=== PATIENT | male | born 1980 | race African-American/Black ===

== ENCOUNTER 2019-09-02 09:58 | Emergency (ER) | payer SELFPAY ==
[2019-09-02 10:09] VITALS: BP 148/92; PULSE 88; TEMP 97.9; BMI 38.7
[2019-09-02] MEDS ORDERED: IBUPROFEN 600 MG TABLET (FP) PO ONE ×2 (10:51→11:20)
--- NOTE | 2019-09-02 10:58 | PDOC ---
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 Reports he had a haircut and facial hair trimming approximately 5 days ago. Denies fever, chills, dental pain or any other complaints. Tetanus vaccine is up-to-date. ROS: As above PE: GENERAL: well-appearing, NAD HEAD: NCAT EYES: Pupils equal, round and reactive to light, sclera anicteric, conjunctiva clear ENT: pharynx: no erythema, no exudate, uvula midline NECK: supple, no lymphadenopathy CHEST: nontender RESP: clear, no w/r/r CARDIO: rrr, no m/g/r ABD: +BS, soft, nontender, non distended BACK: no midline spinal ttp, no CVAT EXTREMITIES: Normal range of motion, no edema NEUROLOGICAL: Normal speech, normal gait SKIN: Small indurated tender area above right upper lip with minimal erythema, no warmth to palpation, moderate facial hair Is this a multiple visit Asthma Patient?: No Past History - Past Medical History Allergies/Adverse Reactions: Allergies Allergy/AdvReac Type Severity Reaction Status Date / Time No Known Allergies Allergy Unverified 09/02/19 10:51 Home Medications: Ambulatory Orders Cephalexin [Keflex Oral Suspension -] 500 mg PO Q6HPO 7 Days #28 ml 09/02/19 - Psycho Social/Smoking Cessation Hx Smoking History: Never smoked Have you smoked in the past 12 months: No Information on smoking cessation initiated: No Hx Alcohol Use: Yes Drug/Substance Use Hx: No *Physical Exam - Vital Signs Last Vital Signs Temp Pulse Resp BP Pulse Ox 97.9 F 88 18 148/92 97 09/02/19 10:06 09/02/19 10:06 09/02/19 10:06 09/02/19 10:06 09/02/19 10:06 Medical Decision Making - Medical Decision Making 09/02/19 10:55 39-year-old healthy male complaining of pain and swelling to right upper lip x2 days. Exam consistent with folliculitis Will treat with p.o. cephalexin Ibuprofen 600 mg x 1 dose provided Strict return precautions discussed Discharge - Discharge Information Problems reviewed: Yes Clinical Impression/Diagnosis: Folliculitis Condition: Stable Disposition: HOME - Admission No - Additional Discharge Information Prescriptions: Cephalexin [Keflex Oral Suspension -] 500 mg PO Q6HPO 7 Days #28 ml - Follow up/Referral - Patient Discharge Instructions Additional Instructions: Take cephalexin 500 mg 1 tablet every 6 hours for 7 days Apply warm compresses over area several times a day Take ibuprofen 600 mg every 6 hours as needed for pain Return to ED if increased swelling, fever, chills, increased pain or any worsening concerns - Post Discharge Activity
== END 2019-09-02 11:24 | disposition home or self-care (01) ==
LOC: JERFT 09:58
DX: L73.8 Other specified follicular disorders (principal)
CPT/HCPCS: 99283-25